=== PATIENT | female | born 1950 | race Asian ===

== ENCOUNTER 2019-10-05 14:07 | Inpatient (IN) | payer MEDICARE, BC ==
[~2019-10-05] VITALS: Ht 165.1 cm; Wt 70.3 kg
[2019-10-05] MEDS ORDERED: IV NORMAL SALINE 1000 ML BAG IV ONE ×2 (14:15→15:30)
[2019-10-05] MEDS ORDERED: ACETAMINOPHEN 650 MG SUPP.RECT RC ONE ×2 (14:15→14:53)
--- NOTE | 2019-10-05 14:15 | NUR ---
RECEIVED PT FROM EMT PT TRANSFER FROM SNF FOR EVALUATION ELEVATED TEMP 103F IN SNF AWAKE CONFUSED ORINTED TO NAME and HX SHANAE DIS ,DEMENtia , WITH DECUBITES STAGE #4 HIN AND FC DRANING YELLOW CLOUDY COLOR TEMP 102.3 DR. RIVAS AT BED SIDE SEPTIC WORK UP INTIATED INSERTED ANGO CATH # 18 ON RT HAND BLOOD DROW AND GIVE TO LAB IVF NS 1L INFUSED AND PTENT COUGHING CONGETION
[2019-10-05] MEDS ORDERED: CRAN425C6 PO (14:38)
[2019-10-05] MEDS ORDERED: DIVA250T PO (14:38)
[2019-10-05] MEDS ORDERED: DIVA500T4 PO (14:38)
[2019-10-05] MEDS ORDERED: MULT-213 PO (14:38)
[2019-10-05] MEDS ORDERED: ZINC50TA2 PO (14:38)
[2019-10-05] MEDS ORDERED: ACET325T53 PO (14:38)
[2019-10-05] MEDS ORDERED: TRAZ-257 PO (14:38)
[2019-10-05] MEDS ORDERED: ACID1TAB2 PO (14:38)
[2019-10-05] MEDS ORDERED: ARGI1POW13 PO (14:38)
[2019-10-05] MEDS ORDERED: [UNRECOGNIZED DRUG - CODE] PO (14:38)
[2019-10-05] MEDS ORDERED: LOSA1TAB36 PO (14:38)
[2019-10-05] MEDS ORDERED: CALC1POW43 PO (14:38)
[2019-10-05] MEDS ORDERED: ASCO500C18 PO (14:38)
[2019-10-05] MEDS ORDERED: BISA10SU12 RC (14:38)
[2019-10-05] MEDS ORDERED: LEVO75TA PO (14:38)
[2019-10-05] MEDS ORDERED: AMIN30LI27 PO (14:38)
[2019-10-05] MEDS ORDERED: MAGN400O6 PO (14:38)
[2019-10-05] MEDS ORDERED: HYDR200T81 PO (14:38)
[2019-10-05] MEDS ORDERED: NA P133E RC (14:38)
--- NOTE | 2019-10-05 15:00 | NUR ---
CXRAY DONE AT BED SIDE
[2019-10-05 15:02] LABS: CREATININE 0.7 mg/dL (0.6-1.3); POTASSIUM 3.5 mmol/L (3.5-5.1)
[2019-10-05 15:08] LABS: BASOPHILS % (AUTO) 0.1 % (0.0-2.0); HEMATOCRIT 39.8 % (31.2-41.9); HEMOGLOBIN 13.3 g/dL (10.9-14.3); LYMPHOCYTES # (AUTO) 0.4 K/uL (20.0-40.0); LYMPHOCYTES % (AUTO) 4.6 % (20.5-51.5); MEAN CORPUSCULAR HEMOGLOBIN 31.7 uug (24.7-32.8); MEAN CORPUSCULAR HGB CONC 33 g/dL (32.3-35.6); MEAN CORPUSCULAR VOLUME 95.1 fL (75.5-95.3); MONOCYTES # (AUTO) 0.3 K/uL (2.0-10.0); MONOCYTES % (AUTO) 3.7 % (0.0-11.0); NEUTROPHILS # (AUTO) 7.3 K/uL (1.8-8.9); NEUTROPHILS % (AUTO) 91.6 % (38.5-71.5); PLATELET COUNT (AUTO) 215 K/uL (179-408); RED BLOOD CELL COUNT(AUTO) 4.18 MIL/uL (3.63-4.92)
[2019-10-05 15:14] LABS: BILIRUBIN,DIRECT 0.1 mg/dL (0.0-0.2); BILIRUBIN,TOTAL 0.3 mg/dL (0.2-1.0); TOTAL PROTEIN, SERUM 6.7 g/dL (6.4-8.2)
[2019-10-05 15:16] LABS: *BILIRUBIN,URIN NEGATIVE (NEGATIVE); *BLOOD, URINE 3+ (NEGATIVE); *CLARITY,URINE CLOUDY (CLEAR); *COLOR,URINE YELLOW (YELLOW); *KETONES,URINE NEGATIVE (NEGATIVE); *UROBILINOGEN,URINE 0.2 E.U./dl (NORMAL); LEUKOCYTE ESTERASE ,URINE 1+ (NEGATIVE); NITRITE, URINE POSITIVE (NEGATIVE); UGLUCOSE NEGATIVE (NEGATIVE)
[2019-10-05 15:25] LABS: BACTERIA,URINE MODERATE /HPF (NONE SEEN); RBC,URINE TNTC /HPF (0-3); SQUAMOUS EPITHELIAL CELL,UR FEW /HPF (NONE SEEN); WBC,URINE 20-50 /HPF (0-3)
[2019-10-05] MEDS ORDERED: PIPERACILLIN/TAZOBACTAM/D5W 50 ML IV ONE (15:29)
[2019-10-05] MEDS ORDERED: PIPERACILLIN SODIUM/TAZOBACTAM 3.375 G in IV DEXTROSE 5% 50 ML IV ONE (15:30)
[2019-10-05] MEDS ORDERED: VANCOMYCIN IV 1,000 MG in IV DEXTROSE 5% 250 ML IV ONE (15:30)
[2019-10-05] MEDS ORDERED: VANCOMYCIN IV 200 ML ONE (16:16)
--- NOTE | 2019-10-05 16:40 | NUR ---
DR. ECKERT CALLED ADMITION ORDER WAS GIVEN AND PAULO OUT ZOSYN 3.375 GM IVPB INFUSED AND COMPLETED AND IV OUT REINSERTED ANGO CATH # 22 ON LT FOR ARM PATENT IVF NS 30ML/ KG INFUSED AND PATENT VANCOMYCIN 1 GM IVPB INFUSED AND PATENT
--- NOTE | 2019-10-05 16:40 | NUR ---
HAND OFF TO JONG SAEED PHON [id number] ROOM 316 TO TELEMTERY PT AWAKE NO SOB NO DISTRESS
--- NOTE | 2019-10-05 17:00 | NUR ---
Received pt. from ER with caregiver at bedside. Pt. alert oriented x2. Pt. denies pain/ discomfort. Pt. denies SOB/ difficulty breathing. Vital signs within normal range. safety measures in place. call light within reach. will continue to monitor pt.
[2019-10-05 19:21] VITALS: BP 103/65
[2019-10-05] MEDS: IV D5 1/2 NS 1000 ML 1,000 ML IV PRN (19:25)
[2019-10-05 20:00] VITALS: BP 106/63
--- NOTE | 2019-10-05 21:00 | NUR ---
Patient's F/C noted leaking, patient noted w/ wet diaper. F/C Fr#16 changed, tolerated well.
[2019-10-05] MEDS: PIPERACILLIN/TAZOBACTAM/D5W 3.375 G in PREMIXED 1 EACH IV SCH (21:34)
[2019-10-06] VITALS: BP 97/60
[2019-10-06] MEDS: ACETAMINOPHEN 325 MG TABLET PO PRN (00:01)
[2019-10-06 04:00] VITALS: BP 115/78
[2019-10-06] MEDS ORDERED: VANCOMYCIN IV 1,000 MG in IV DEXTROSE 5% 250 ML IV SCH (04:00)
[2019-10-06 05:45] LABS: CREATININE 0.5 mg/dL (0.6-1.3)
[2019-10-06 06:01] LABS: BASOPHILS % (AUTO) 0.2 % (0.0-2.0); HEMOGLOBIN 11.3 g/dL (10.9-14.3); LYMPHOCYTES # (AUTO) 0.6 K/uL (20.0-40.0); MEAN CORPUSCULAR HEMOGLOBIN 31.2 uug (24.7-32.8); MEAN CORPUSCULAR HGB CONC 33 g/dL (32.3-35.6); MEAN CORPUSCULAR VOLUME 93.7 fL (75.5-95.3); MONOCYTES # (AUTO) 0.3 K/uL (2.0-10.0); MONOCYTES % (AUTO) 5.7 % (0.0-11.0); NEUTROPHILS # (AUTO) 5.2 K/uL (1.8-8.9); NEUTROPHILS % (AUTO) 84.1 % (38.5-71.5); PLATELET COUNT (AUTO) 204 K/uL (179-408); RED BLOOD CELL COUNT(AUTO) 3.64 MIL/uL (3.63-4.92); WHITE BLOOD COUNT (AUTO) 6.2 K/uL (3.8-11.8)
--- NOTE | 2019-10-06 06:23 | NUR ---
Patient slept intermittently. No SOB noted. Afebrile at this time. IV on R wrist intact and patent w/ IVF and IV ATB infusing. Caregiver at bedside. T/R Q2 for skin management. F/C intact and draining clear yellow urine. All needs attended. Will endorse accordingly
[2019-10-06] MEDS: PIPERACILLIN/TAZOBACTAM/D5W 3.375 G in PREMIXED 1 EACH IV SCH ×3 (06:38→21:09)
[2019-10-06 08:00] VITALS: BP 98/55
--- NOTE | 2019-10-06 08:00 | NUR ---
Pt. resting in bed alert oriented x2 with caregiver at bedside. Pt. denies pain/ discomfort. Pt. denies SOB/ difficulty breathing. Safety measures in place. call light within reach. mcnulty catheter in place draining clear urine. will continue to monitor pt.
--- NOTE | 2019-10-06 09:13 | NUR ---
PHARMACY CLINICAL NOTES: (VANCOMYCIN DOSING) S: To start vanco dosing for this 69 YO female for sepsis, UTI, febrile illness ([facility]) O: BUN/SCR 12/0.5, WBC 6.2, TEMP 99.8 ht 165 cm wt 70 kg A/P: Patient relieved vanco 1gm IVPB x1 on 10/05 at 1630. francis tart vanco 1gm IVPB q18h for estimated vanco trough level of 16 mcg/ml. 2nd dose today at 1030. Plan to order trough level before 4th dose of current regimen (not yet ordered). Will continue to monitor
[2019-10-06] MEDS ORDERED: FLEET ENEMA 133 ML BOTTLE RC PRN (09:45)
[2019-10-06] MEDS ORDERED: BISACODYL 10 MG SUPP.RECT RC PRN (09:45)
[2019-10-06] MEDS ORDERED: POTASSIUM CHLORIDE 20 MEQ TAB.PRT.SR PO SCH (10:00)
[2019-10-06] MEDS: POTASSIUM CHLORIDE 50 ML IV SCH ×4 (11:54→18:39)
[2019-10-06] MEDS: IV D5 1/2 NS 1000 ML 1,000 ML IV PRN ×2 (11:57→21:19)
[2019-10-06] MEDS: VANCOMYCIN IV 1,000 MG in IV DEXTROSE 5% 250 ML IV SCH (12:16)
[2019-10-06 16:00] VITALS: BP 130/65
--- NOTE | 2019-10-06 18:19 | NUR ---
New IV in L hand 22 gauge intact patent running fluids. Pt. has 4 bags of K to be given. Due to pt. stating that K is burning I am running it at a lower rate. Called Williamian to ask to change K to PO; however, no call back. Possibly will have 1 more K running during friction saw operator. Finished 3/4 bags. Pt. denies pain. Pt. denies SOB/ difficulty breathing. Safety measures in place. call light within reach. will continue to monitor pt.
[2019-10-06] MEDS: DIVALPROEX ER 500 MG TAB.SR.24H PO SCH (18:39)
--- NOTE | 2019-10-06 19:20 | NUR ---
RECEIVED PT ON BED. STAFF AIR TACTICAL OFFICER AT BEDSIDE. PT IN NO ACUTE DISTRESS. SAFETY AND COMFORT PROVIDED. WILL CONTINUE TO MONITOR.
[2019-10-06 20:00] VITALS: BP 107/64
[2019-10-06] MEDS: TRAZODONE 100 MG TABLET PO SCH (21:07)
[2019-10-07 00:36] VITALS: BP 113/64
--- NOTE | 2019-10-07 00:51 | NUR ---
NOTIFY DR. SHELDON BANERJEE REGARDING PT BLOOD CULTURE THAT ITS POSITIVE GRAM COCCI IN CLUSTERS. PT IN NO ACUTE DISTRESS. WILL CONTINUE TO MONITOR.
[2019-10-07] MEDS: VANCOMYCIN IV 1,000 MG in IV DEXTROSE 5% 250 ML IV SCH ×2 (04:20→23:13)
[2019-10-07 05:30] VITALS: BP 108/72
[2019-10-07] MEDS: PIPERACILLIN/TAZOBACTAM/D5W 3.375 G in PREMIXED 1 EACH IV SCH ×3 (06:13→22:21)
[2019-10-07] MEDS: LEVOTHYROXINE SODIUM 75 MCG TABLET PO SCH (06:21)
[2019-10-07 06:37] LABS: BASOPHILS % (AUTO) 0.3 % (0.0-2.0); HEMATOCRIT 32.5 % (31.2-41.9); HEMOGLOBIN 10.8 g/dL (10.9-14.3); LYMPHOCYTES # (AUTO) 0.8 K/uL (20.0-40.0); LYMPHOCYTES % (AUTO) 30.3 % (20.5-51.5); MEAN CORPUSCULAR HEMOGLOBIN 31.8 uug (24.7-32.8); MEAN CORPUSCULAR HGB CONC 33 g/dL (32.3-35.6); MEAN CORPUSCULAR VOLUME 96.2 fL (75.5-95.3); MONOCYTES # (AUTO) 0.3 K/uL (2.0-10.0); NEUTROPHILS # (AUTO) 1.5 K/uL (1.8-8.9); NEUTROPHILS % (AUTO) 58.4 % (38.5-71.5); PLATELET COUNT (AUTO) 170 K/uL (179-408); RED BLOOD CELL COUNT(AUTO) 3.38 MIL/uL (3.63-4.92)
[2019-10-07 06:49] LABS: ALANINE AMINOTRANSFERASE 9 U/L (14-59); ALKALINE PHOSPHATASE 49 U/L (50-136); ASPARTATE AMINOTRANSFERASE 17 U/L (15-37); BILIRUBIN,TOTAL 0.2 mg/dL (0.2-1.0); CARBON DIOXIDE 27 mmol/L (21-32); CHLORIDE 110 mmol/L (98-107); CREATININE 0.4 mg/dL (0.6-1.3); GLUCOSE 109 mg/dL (74-106); MAGNESIUM 1.7 mg/dL (1.8-2.4); PHOSPHOROUS 2.2 mg/dL (2.5-4.9); POTASSIUM 3.4 mmol/L (3.5-5.1); TOTAL PROTEIN, SERUM 5.3 g/dL (6.4-8.2); UREA NITROGEN, BLOOD 7 mg/dL (7-18)
[2019-10-07 07:01] LABS: WHITE BLOOD COUNT (AUTO) 2.6 K/uL (3.8-11.8)
--- NOTE | 2019-10-07 07:14 | NUR ---
PT SLEPT INTERMITTENTLY. PT IN NO ACUTE DISTRESS. IV INTACT. ROQUE CATHETER DWELLING WELL. KINESIOTHERAPIST AT BEDSIDE. SAFETY AND COMFORT PROVIDED. WILL ENDORSE TO INCOMING NURSE FOR CONTINUITY OF CARE.
--- NOTE | 2019-10-07 07:30 | NUR ---
Patient in stable condition with no signs of distress; patient will continue to be monitored.
--- NOTE | 2019-10-07 07:35 | NUR ---
PHARMACY CLINICAL NOTES: (VANCOMYCIN DOSING) S: To continue vanco dosing for this 69 YO female for sepsis, UTI, febrile illness (resides in custodial) O: BUN/SCR 7/0.4, WBC 2.6, TEMP 98.3 ht 165 cm wt 70 kg A/P: Will continue same dose of vanco 1gm IVPB q18h for estimated vanco trough level of 16 mcg/ml. 3rd dose today at 0430 but 2nd dose was given late (at 1200 instead of 1030 on 10/06). Plan to order trough level before 4th dose of current regimen (ordered for 10/08 at 1600). Will continue to monitor
[2019-10-07 08:00] VITALS: BP 117/61
[2019-10-07] MEDS: PROTEIN SUPPLEMENT (PROSTAT) 30 ML LIQUID PO SCH ×3 (08:37→17:24)
[2019-10-07] MEDS: DIVALPROEX ER 250 MG TAB.SR.24H PO SCH (08:37)
[2019-10-07] MEDS: ASCORBIC ACID 500 MG TABLET PO SCH (08:38)
[2019-10-07] MEDS: HYDROXYCHLOROQUINE SULFATE 200 MG TABLET PO SCH (08:38)
[2019-10-07 08:45] LABS: BAND % (MANUAL) 9 % (0-10); EOSINOPHILS % (MANUAL) 1 % (0-8); LYMPHOCYTES % (MANUAL) 29 % (20-40); MONOCYTES % (MANUAL) 12 % (2-10); NEUTROPHILS % (MANUAL) 49 % (42-75)
[2019-10-07] MEDS ORDERED: Medication Not On Formulary EA (Ascorbic Acid (Vitamin C) 500 MG) PO SCH (09:00)
[2019-10-07] MEDS: MAGNESIUM SULFATE/D5W 100 ML IV SCH ×2 (10:17→13:52)
[2019-10-07] MEDS: POTASSIUM PHOSPHATE MM 7.5 MMOL in IV DEXTROSE 5% 100 ML IV SCH ×2 (11:32→15:40)
--- NOTE | 2019-10-07 12:24 | NUR ---
WOUND CARE CONSULT: PT PRESENTS WITH STAGE 4 ULCER TO SACRUM, PRESENT ON ADMISSION. RECOMMEND SURGICAL CONSULT. DR BANEGAS NOTIFIED OF CONSULT REQUEST. FIRST STEP LOW AIRLOSS MATTRESS ON ORDER. RECOMMENDATIONS MADE FOR SKIN PROTECTION. DISCUSSED WITH NURSING STAFF. DEFER TO SURGICAL TEAM FOR WOUND TREATMENT PLAN. WILL SEE PRN. MEJIA IN AGREEMENT WITH PLAN OF CARE. Addendum: 10/07/19 at 1225 by CECILIA MONTANO RN Amended: Links added.
[2019-10-07] MEDS ORDERED: Z GUARD REMEDY PASTE 57 GM TUBE TOP PRN (12:30)
[2019-10-07] MEDS: IV D5 1/2 NS 1000 ML 1,000 ML IV PRN (15:43)
[2019-10-07] MEDS: DIVALPROEX ER 500 MG TAB.SR.24H PO SCH (17:23)
--- NOTE | 2019-10-07 18:50 | NUR ---
Patient calm and comfortable through out shift with no signs of distress; patient medication compliant; patient sacral wound dressing changed. patient with caregiver at bedside; patient with stable vital signs during shift. Report given to oncoming nurse.
--- NOTE | 2019-10-07 19:00 | NUR ---
PATIENT ALERT BUT FORGETFUL, NO SOB NO CHEST PAIN. PATIENT ON TELE MONITOR SINUS RHYTHM 70'S AND 80'S. PATIENT HAS NO COMPLAIN OF PAIN, DRESSING ON SACRUM INTACT, ROQUE CATH PATENT DRAINING WITH YELLOW COLOR URINE IN MODERATE AMOUNT. PATIENT PRIVATE SITTER AT BEDSIDE, CONT TO MONITOR.
[2019-10-07 20:27] VITALS: BP 128/77
[2019-10-07] MEDS: TRAZODONE 100 MG TABLET PO SCH (22:15)
[2019-10-07] MEDS: Z GUARD REMEDY PASTE 57 GM TUBE TOP SCH (22:31)
[2019-10-08 00:17] VITALS: BP 124/72
[2019-10-08 04:11] VITALS: BP 110/64
--- NOTE | 2019-10-08 05:01 | NUR ---
PATIENT ALERT BUT FORGETFUL, NO SOB NO CHEST PAIN. PATIENT TELE MONITOR SINUS RHYTHM AT THIS TIME. PATIENT TURN AND REPOSITION EVERY TWO HOURS, ROQUE CATH PATENT DRAINING WITH YELLOW COLOR URINE IN MODERATE AMOUNT. PATIENT PRIVATE SITTER AT BEDSIDE, CONT TO MONITOR.
[2019-10-08] MEDS: PIPERACILLIN/TAZOBACTAM/D5W 3.375 G in PREMIXED 1 EACH IV SCH ×3 (05:36→21:34)
[2019-10-08] MEDS: IV D5 1/2 NS 1000 ML 1,000 ML IV PRN ×2 (05:41→16:01)
[2019-10-08 06:29] LABS: BASOPHILS % (AUTO) 0.4 % (0.0-2.0); EOSINOPHILS % (AUTO) 1.5 % (0.0-7.0); HEMATOCRIT 32.6 % (31.2-41.9); LYMPHOCYTES # (AUTO) 0.5 K/uL (20.0-40.0); LYMPHOCYTES % (AUTO) 18.5 % (20.5-51.5); MEAN CORPUSCULAR HEMOGLOBIN 31.4 uug (24.7-32.8); MEAN CORPUSCULAR HGB CONC 34 g/dL (32.3-35.6); MEAN CORPUSCULAR VOLUME 93.3 fL (75.5-95.3); MONOCYTES # (AUTO) 0.3 K/uL (2.0-10.0); MONOCYTES % (AUTO) 11.4 % (0.0-11.0); NEUTROPHILS # (AUTO) 1.8 K/uL (1.8-8.9); NEUTROPHILS % (AUTO) 68.2 % (38.5-71.5); PLATELET COUNT (AUTO) 204 K/uL (179-408); RED BLOOD CELL COUNT(AUTO) 3.49 MIL/uL (3.63-4.92); WHITE BLOOD COUNT (AUTO) 2.6 K/uL (3.8-11.8)
[2019-10-08 06:30] LABS: ALANINE AMINOTRANSFERASE 17 U/L (14-59); ALKALINE PHOSPHATASE 53 U/L (50-136); ASPARTATE AMINOTRANSFERASE 22 U/L (15-37); BILIRUBIN,TOTAL 0.2 mg/dL (0.2-1.0); CARBON DIOXIDE 29 mmol/L (21-32); CHLORIDE 108 mmol/L (98-107); CREATININE 0.4 mg/dL (0.6-1.3); GLUCOSE 88 mg/dL (74-106); MAGNESIUM 1.8 mg/dL (1.8-2.4); PHOSPHOROUS 2.9 mg/dL (2.5-4.9); POTASSIUM 3.5 mmol/L (3.5-5.1); TOTAL PROTEIN, SERUM 5.6 g/dL (6.4-8.2); UREA NITROGEN, BLOOD 6 mg/dL (7-18)
[2019-10-08] MEDS: LEVOTHYROXINE SODIUM 75 MCG TABLET PO SCH (07:21)
--- NOTE | 2019-10-08 08:00 | NUR ---
AWAKE ALERT AND VERBALLY RESPONSIVE, NOTED WITH DIFFICULTY TALKING NEEDS ATTENDED. SR ON MONITOR. CLOSELY MONITOR
--- NOTE | 2019-10-08 08:00 | NUR ---
AWAKE ALERT AND ORIENTED X3 NO SS OF PAIN, HEADACHE OR RESPIRATORY DISTRESS, UP AND ABOUT WITH STEADY GAIT. FALL PRECAUTION REINFORCED. SR ON MONITOR. NOTED NO SWALLOWING DIFFICULTY ON SWALLOWING DURING BREAKFAST. CONTINUE WITH STROKE MANAGEMENT ORDERED. Addendum: 10/08/19 at 1503 by NICKOLAS CULVER RN ERROR
[2019-10-08] MEDS: ASCORBIC ACID 500 MG TABLET PO SCH (08:11)
[2019-10-08] MEDS: HYDROXYCHLOROQUINE SULFATE 200 MG TABLET PO SCH (08:11)
[2019-10-08] MEDS: DIVALPROEX ER 250 MG TAB.SR.24H PO SCH (08:11)
[2019-10-08] MEDS: Z GUARD REMEDY PASTE 57 GM TUBE TOP SCH ×2 (08:13→21:29)
[2019-10-08] MEDS: PROTEIN SUPPLEMENT (PROSTAT) 30 ML LIQUID PO SCH ×3 (08:13→17:13)
--- NOTE | 2019-10-08 09:45 | NUR ---
HOSPITALIST IN SPOKE WITH PATIENT REGARDING PLAN OF CARE. SEE NOTES Addendum: 10/08/19 at 1503 by NICKOLAS CULVER RN ERROR
[2019-10-08 12:33] VITALS: BP 111/58
--- NOTE | 2019-10-08 14:49 | NUR ---
SEEN BY DR ARRIETA FOR NEURO CONSULT SEE NOTES Addendum: 10/08/19 at 1502 by NICKOLAS CULVER RN ERROR
--- NOTE | 2019-10-08 15:03 | NUR ---
CONTINUE WITH IV ANTIBIOTIC MANAGEMENT NO ADVERSE REACTION NOTED
--- NOTE | 2019-10-08 15:34 | NUR ---
PHARMACY CLINICAL NOTES: (VANCOMYCIN DOSING) S: To continue vanco dosing for this 69 YO female for sepsis, UTI, febrile illness (resides in long term) O: BUN/SCR 6/0.4, WBC 2.6, TEMP 98.7 Vanco trough level on 10/08 at 1600: pending ht 165 cm wt 70 kg A/P: Will continue same dose of vanco 1gm IVPB q18h for estimated vanco trough level of 16 mcg/ml. Plan to order trough level before next dose today (ordered for 10/08 at 1600). Pharmacy will review the level & adjust the dose if needed. Will continue to monitor Addendum: 10/08/19 at 1700 by JIE BARNHART ADM TROUGH LEVEL 9 CHANGE VANCOMYCIN TO 1GM IVPB Q12H ESTIMATED TROUGH 17
[2019-10-08 17:08] VITALS: BP 118/60
[2019-10-08] MEDS: DIVALPROEX ER 500 MG TAB.SR.24H PO SCH (17:12)
[2019-10-08] MEDS: ACETAMINOPHEN 325 MG TABLET PO PRN (17:12)
[2019-10-08] MEDS: VANCOMYCIN IV 1,000 MG in IV DEXTROSE 5% 250 ML IV SCH (17:51)
[2019-10-08 20:48] VITALS: BP 107/65
[2019-10-08] MEDS: TRAZODONE 100 MG TABLET PO SCH (21:27)
[2019-10-09] MEDS: ACETAMINOPHEN 325 MG TABLET PO PRN
[2019-10-09 00:05] VITALS: BP 102/55
[2019-10-09 04:19] VITALS: BP 101/65
[2019-10-09] MEDS: IV D5 1/2 NS 1000 ML 1,000 ML IV PRN (04:52)
[2019-10-09] MEDS: PIPERACILLIN/TAZOBACTAM/D5W 3.375 G in PREMIXED 1 EACH IV SCH (05:01)
[2019-10-09] MEDS: VANCOMYCIN IV 1,000 MG in IV DEXTROSE 5% 250 ML IV SCH (05:42)
--- NOTE | 2019-10-09 06:11 | NUR ---
patient received with caregiver at bedside. v/s stable and no signs of acute distress noted throughout shift. all medications administered and tolerated well. Tylenol was attempted to be administered due to fever reported to me, however when I rechecked myself temperature was normal. Tylenol wasted in Pyxis. all other medications administered and tolerated well. safety and comfort measures provided. bed in lowest position, side rails up x2, and bed alarm on. NSR on tele monitor. will continue plan of care and endorse care accordingly to morning nurse.
[2019-10-09] MEDS: LEVOTHYROXINE SODIUM 75 MCG TABLET PO SCH (06:24)
[2019-10-09] MEDS ORDERED: VANC1PLA9 IV (07:50)
[2019-10-09] MEDS ORDERED: RXVAN XX (07:50)
[2019-10-09] MEDS ORDERED: PIPE3.379 IV (07:50)
--- NOTE | 2019-10-09 07:56 | NUR ---
Pt.was seen by with new orders.
--- NOTE | 2019-10-09 08:59 | NUR ---
PHARMACY CLINICAL NOTES: (VANCOMYCIN DOSING) S: To continue vanco dosing for this 69 YO female for sepsis, UTI, febrile illness (resides in custodial) O: BUN/SCR 6/0.4 (10/08), WBC 2.6 (10/08), TEMP 98.3 Vanco trough level on 10/08 at 1600: pending ht 165 cm wt 70 kg A/P: Will continue vancomycin 1gm q12h for estimated trough of 17. third dose tonight at 1800. Trough due tomorrow early am at 0530. RN endorsed to hold if Trough >20. Will check in am and adjust as needed. Will follow
[2019-10-09] MEDS: PROTEIN SUPPLEMENT (PROSTAT) 30 ML LIQUID PO SCH ×3 (09:05→17:22)
[2019-10-09] MEDS: DIVALPROEX ER 250 MG TAB.SR.24H PO SCH (09:05)
[2019-10-09] MEDS: HYDROXYCHLOROQUINE SULFATE 200 MG TABLET PO SCH (09:05)
[2019-10-09] MEDS: ASCORBIC ACID 500 MG TABLET PO SCH (09:05)
[2019-10-09] MEDS: Z GUARD REMEDY PASTE 57 GM TUBE TOP SCH (09:06)
[2019-10-09 09:17] LABS: BASOPHILS % (AUTO) 0.4 % (0.0-2.0); EOSINOPHILS % (AUTO) 1.8 % (0.0-7.0); HEMATOCRIT 34.3 % (31.2-41.9); HEMOGLOBIN 11.5 g/dL (10.9-14.3); LYMPHOCYTES # (AUTO) 0.8 K/uL (20.0-40.0); MEAN CORPUSCULAR HEMOGLOBIN 32.1 uug (24.7-32.8); MEAN CORPUSCULAR HGB CONC 34 g/dL (32.3-35.6); MEAN CORPUSCULAR VOLUME 95.5 fL (75.5-95.3); MONOCYTES # (AUTO) 0.4 K/uL (2.0-10.0); MONOCYTES % (AUTO) 14.7 % (0.0-11.0); NEUTROPHILS # (AUTO) 1.6 K/uL (1.8-8.9); NEUTROPHILS % (AUTO) 56.1 % (38.5-71.5); PLATELET COUNT (AUTO) 194 K/uL (179-408); RED BLOOD CELL COUNT(AUTO) 3.59 MIL/uL (3.63-4.92); WHITE BLOOD COUNT (AUTO) 2.8 K/uL (3.8-11.8)
[2019-10-09 09:26] LABS: ALANINE AMINOTRANSFERASE 30 U/L (14-59); ALKALINE PHOSPHATASE 59 U/L (50-136); ASPARTATE AMINOTRANSFERASE 31 U/L (15-37); BILIRUBIN,TOTAL 0.2 mg/dL (0.2-1.0); CARBON DIOXIDE 31 mmol/L (21-32); CHLORIDE 105 mmol/L (98-107); CREATININE 0.4 mg/dL (0.6-1.3); GLUCOSE 95 mg/dL (74-106); MAGNESIUM 1.8 mg/dL (1.8-2.4); PHOSPHOROUS 2.8 mg/dL (2.5-4.9); POTASSIUM 3.4 mmol/L (3.5-5.1); TOTAL PROTEIN, SERUM 5.6 g/dL (6.4-8.2); UREA NITROGEN, BLOOD 5 mg/dL (7-18)
--- NOTE | 2019-10-09 11:30 | NUR ---
Pt. sleeping,no s/s of distress or pain noted,privet caregiver at bedside.
[2019-10-09 11:58] VITALS: BP 107/49
--- NOTE | 2019-10-09 13:34 | NUR ---
Dr Flores called- informed of Ky and Erick d/cd by CHRISTOPHER BROWN MD to let [facility] ([facility]) aware
--- NOTE | 2019-10-09 14:00 | NUR ---
Pt.sleeping,no s/s of distress.caregiver at bedside.
[2019-10-09 16:25] VITALS: BP 132/76
[2019-10-09] MEDS: DIVALPROEX ER 500 MG TAB.SR.24H PO SCH (17:22)
--- NOTE | 2019-10-09 17:51 | NUR ---
D/C sbar report given to Yamile/DARLIN to [facility].
--- NOTE | 2019-10-09 20:00 | NUR ---
PT WHEELED OUT VIA [facility]. GOING T0 [facility]. DISCHARGE PACKET GIVEN TO TIFFANIE CULVER OF [id number]. DIAMOND DIE DRILLER AT BEDSIDE. PT WILL GO WITH ROQUE CATHETER. HEART MONITOR RETRIEVED. PT IN NO ACUTE DISTRESS. ID BAND REMOVED AND IV. DISCHARGE INSTRUCTIONS GIVEN. PT STABLE AND VITAL SIGNS WITHIN NORMAL LIMIT.
== END 2019-10-09 21:40 | DRG 871 ==
LOC: ER 14:07 → TELE3 17:02
PROVIDERS: ADMIT Internal Medicine Nephrology; ATTEND Internal Medicine
DX: A41.9 Sepsis, unspecified organism (principal); L89.154 Pressure ulcer of sacral region, stage 4; E43 Unspecified severe protein-calorie malnutrition; N39.0 Urinary tract infection, site not specified; G10 Huntington's disease; E87.1 Hypo-osmolality and hyponatremia; J98.11 Atelectasis; F03.90 Unspecified dementia, unspecified severity, without behavioral disturbance, psychotic disturbance, mood disturbance, and anxiety; E03.9 Hypothyroidism, unspecified; G40.909 Epilepsy, unspecified, not intractable, without status epilepticus; Z68.25 Body mass index [BMI] 25.0-25.9, adult; E86.1 Hypovolemia; E87.6 Hypokalemia; Z87.440 Personal history of urinary (tract) infections; R13.10 Dysphagia, unspecified; I70.0 Atherosclerosis of aorta; D69.6 Thrombocytopenia, unspecified; I10 Essential (primary) hypertension
CPT/HCPCS: 36415; 70030-TC; 71045; 83605; 83735; 84100; 85025; 85730; 87040; 87086; 87400; 93005; A4663; G0378; J2543; J3370; J3475; J3480; J3490; J7030; J7040; J7050; J7060